=== PATIENT | female | born 1950 | race Caucasian/White ===

== ENCOUNTER → 2017-01-26 | Outpatient (CLI) | payer BC, OTHER | END | disposition home or self-care (01) | DX: R13.10 Dysphagia, unspecified (principal); K21.0 Gastro-esophageal reflux disease with esophagitis | CPT/HCPCS: 92611 GN ==

== ENCOUNTER 2017-09-01 11:31 | Inpatient (IN) | payer OTHER ==
[~2017-09-01] VITALS: Ht 162.6 cm; Wt 74.3 kg
[2017-09-01 12:18] LABS: EOSINOPHIL (%) 3.7 % (0-5); EOSINOPHIL COUNT 0.3 K/uL (0-0.3); HEMATOCRIT 40.5 % (36.0-46.0); IMMATURE GRANULOCYTE (%) 0.1 % (0.0-0.7); INSTRUMENT ABS NEUTROPHIL CT 4.9 K/uL; LYMPHOCYTE COUNT 1.8 K/uL (1.0-2.8); MCHC 33.6 G/DL (30.0-36.0); MCV 89.4 FL (83-99); MEAN PLAT.VOLUME 9.1 uM^3 (9.5-12.4); MONOCYTE (%) 4.3 % (3-12); MONOCYTE COUNT 0.3 K/uL (0-0.8); NEUTROPHIL (%) 66.7 % (45-76); NEUTROPHIL COUNT 4.9 K/uL (1.8-6.4); PLATELET COUNT 251 K/uL (156-360); RBC DIS.WIDTH-CV 12.5 % (11.8-14.6); RED BLOOD COUNT 4.53 M/uL (3.80-5.20); WHITE BLOOD COUNT 7.4 K/uL (4.1-10.2)
[2017-09-01 12:25] LABS: ADD MIUA? YES; BILIRUBIN NEGATIVE; BLOOD NEGATIVE; COLOR YELLOW ((YELLOW)); GLUCOSE (STRIP) >=500; KETONES NEGATIVE; LEUKOCYTES LARGE; NITRITE NEGATIVE; PROTEIN (STRIP) 30; SPECIFIC GRAVITY 1.012 (1.000-1.030); UROBILINOGEN 0.2 MG/DL (0.2-1.0)
[2017-09-01 12:29] LABS: BACTERIA RARE /HPF; EPITHELIAL CELLS 1+ /HPF; MUCUS TRACE /LPF; UCUL ADDED? YES
[2017-09-01 12:31] LABS: CHLORIDE 102 mEq/L (99-109); POTASSIUM 3.7 mEq/L (3.7-5.4); SODIUM 141 mEq/L (136-147)
[2017-09-01 12:33] LABS: GLUCOSE 223 mg/dL (70-99)
[2017-09-01 12:34] LABS: ANION GAP 14 MEQ/L (2-14)
[2017-09-01 12:35] LABS: TOTAL BILIRUBIN 0.3 mg/dL (0.0-1.0)
[2017-09-01 12:36] LABS: ALKALINE PHOSPHATASE 93 IU/L (3-129)
[2017-09-01 12:37] LABS: GFR ESTIMATE (CALCULATED) > 59 mL/min/
[2017-09-01 12:38] LABS: UREA NITROGEN (BUN) 16 mg/dL (9-23)
[2017-09-01 12:40] LABS: TROP-I INTERPRETATION NEGATIVE; TROPONIN-I < 0.01 ng/mL (0.0-0.30)
[2017-09-01 12:44] LABS: Estimated Average Glucose 255 mg/dL (70-123); HEMOGLOBIN A1c (GLYCOHEMOGLOB) 10.5 % HGB (Below 5.7)
[2017-09-01 13:15] LABS: HDL CHOLESTEROL 38 MG/DL (Desirable>=50); LDL CHOLESTEROL 224 mg/dL (Desirable<100); NON-HDL CHOLESTEROL 271 mg/dL (Desirable<160); TOTAL CHOLESTEROL 309 mg/dL (Desirable<200); TRIGLYCERIDES 234 MG/DL (Normal: <150)
[2017-09-01] MEDS ORDERED: NORVASC5 MG PO (13:49)
[2017-09-01] MEDS ORDERED: GLUCOPHAGE500 MG PO (13:49)
[2017-09-01] MEDS ORDERED: EFFEXOR XR150 MG PO (13:49)
[2017-09-01] MEDS ORDERED: ZANTAC300 MG PO (13:50)
[2017-09-01] MEDS ORDERED: ADVIL200 MG PO (13:50)
[2017-09-01] MEDS ORDERED: LOTENSIN20 MG PO (13:50)
[2017-09-01] MEDS ORDERED: ARTIFICIAL TEAR1510 BOTH EYES (13:51)
[2017-09-01 17:06] VITALS: BP 150/84
[2017-09-01 18:07] LABS: POINT-OF-CARE METER ID UU14208750
[2017-09-01 19:17] VITALS: BP 130/72
[2017-09-01 23:31] VITALS: BP 129/62
[2017-09-02 00:21] LABS: POINT-OF-CARE METER ID UU14208750
[2017-09-02 03:34] VITALS: BP 127/64
[2017-09-02 05:42] LABS: POINT-OF-CARE METER ID UU14208750
[2017-09-02 07:18] VITALS: BP 146/78
[2017-09-02 07:58] LABS: HEMATOCRIT 37.7 % (36.0-46.0); MCH 30.8 PG (29.0-34.0); MCHC 33.7 G/DL (30.0-36.0); MCV 91.3 FL (83-99); MEAN PLAT.VOLUME 9.4 uM^3 (9.5-12.4); PLATELET COUNT 245 K/uL (156-360); RBC DIS.WIDTH-CV 12.8 % (11.8-14.6); RBC DIS.WIDTH-SD 43.1 % (39-53); RED BLOOD COUNT 4.13 M/uL (3.80-5.20); WHITE BLOOD COUNT 6.5 K/uL (4.1-10.2)
[2017-09-02 08:23] LABS: ANION GAP 9 MEQ/L (2-14); CHLORIDE 107 MEQ/L (99-109); GFR ESTIMATE (CALCULATED) > 59 mL/min/; GLUCOSE 230 mg/dL (70-99); POTASSIUM 3.9 MEQ/L (3.7-5.4); SAMPLE HEMOLYSIS CHECK 0; SAMPLE ICTERIC CHECK 0; SAMPLE LIPEMIA CHECK 0; SODIUM 141 MEQ/L (136-147); UREA NITROGEN (BUN) 14 mg/dL (9-23)
[2017-09-02 11:40] VITALS: BP 163/74
[2017-09-02 12:00] LABS: POINT-OF-CARE METER ID UU14208750
[2017-09-02 12:11] LABS: POINT-OF-CARE METER ID UU14208750
[2017-09-02] MEDS ORDERED: LEVEMIR100 UNIT/2 SC (13:56)
== END 2017-09-02 15:05 | disposition home or self-care (01) | DRG 69 ==
LOC: EME 11:31 → EDOF 15:04 → ENRESERV 15:08 → 2EAST 16:48
PROVIDERS: Emergency Medicine; Hospitalist; Physician Assistant Medical
DX: G45.9 Transient cerebral ischemic attack, unspecified (principal); G93.40 Encephalopathy, unspecified; E11.65 Type 2 diabetes mellitus with hyperglycemia; E86.0 Dehydration; E78.5 Hyperlipidemia, unspecified; K21.9 Gastro-esophageal reflux disease without esophagitis; F32.9 Major depressive disorder, single episode, unspecified; I10 Essential (primary) hypertension; F41.9 Anxiety disorder, unspecified; F01.50 Vascular dementia, unspecified severity, without behavioral disturbance, psychotic disturbance, mood disturbance, and anxiety
CPT/HCPCS: 70450; 70551; 71020; 80048; 80053; 80061; 81003; 82607; 82746; 82948; 83036; 84443; 84484; 85025; 85027; 87086; 90686; 93005; 99281; 99285; J0696; J1200; J1650; J1815; J2765; J7040; J7050